=== PATIENT | female | born 1990 | race American Indian/Alaskan Native ===

== ENCOUNTER 2016-09-11 17:38 | Emergency (ER) | payer MEDICAID ==
[2016-09-11 17:46] VITALS: BP 118/84
[2016-09-11 18:43] LABS: Bacteria,Urine 1+ /HPF (Negative); Bilirubin,Urine NEG (Negative); Blood,Urine NEG (Negative); Ketones,Urine NEG (Negative); Leukocyte Esterase,Urine SM (Negative); Mucus,Urine 2+ /HPF; Nitrite,Urine NEG (Negative); Protein,Urine <15 mg/dL mg/dL (Negative); Urobilinogen,Urine < 2.0 mg/dL (<2.0); WBC,Urine < 1.0 /HPF (0.0-6.0)
--- NOTE | 2016-09-14 10:02 | ED Elopement Review ---
ED Pt Elopement review - Results review Lab results: Laboratory Tests 09/11/16 18:10 Urine Color Yellow Urine Turbidity Cloudy Urine pH 6.0 Ur Specific [place] 1.025 Urine Protein <15 mg/dl Urine Glucose (UA) Neg Urine Ketones Neg Urine Blood Neg Urine Nitrite Neg Urine Bilirubin Neg Urine Urobilinogen < 2.0 Ur Leukocyte Esterase Sm Urine WBC (Auto) < 1.0 Urine RBC (Auto) 1.0 U Epithel Cells (Auto) 22.0 H Urine Bacteria (Auto) 1+ Urine Mucus 2+ Urine HCG, Qual Negative - Call Back decision Pt Call Back Decision: No action required
== END 2016-09-11 20:45 | disposition left against medical advice (07) ==
LOC: ED 17:38
DX: R10.2 Pelvic and perineal pain (principal); N89.8 Other specified noninflammatory disorders of vagina; Z53.21 Procedure and treatment not carried out due to patient leaving prior to being seen by health care provider
CPT/HCPCS: 81001; 81025

== ENCOUNTER 2016-09-18 10:14 | Emergency (ER) | payer MEDICAID ==
[2016-09-18 10:26] VITALS: BP 135/88
[2016-09-18 10:48] LABS: Bilirubin,Urine NEG (Negative); Blood,Urine MOD (Negative); Ketones,Urine NEG (Negative); Leukocyte Esterase,Urine TR (Negative); Mucus,Urine FEW /HPF; Nitrite,Urine NEG (Negative); Protein,Urine <15 mg/dL mg/dL (Negative); Urobilinogen,Urine < 2.0 mg/dL (<2.0)
--- NOTE | 2016-09-18 12:02 | Emergency Department Report ---
ED Female HPI - General Chief complaint: Urogenital-Female Stated complaint: VAG DISCHARGE/PELVIC PAIN Time Seen by Provider: 09/18/16 12:01 Source: patient Mode of arrival: Ambulatory Limitations: No Limitations - History of Present Illness Initial comments: Patient reports intermittent vaginal discharge with an odor that initially started in June, however she misplace the prescription and never followed up with the [facility]ERR[facility]. MD Complaint: vaginal discharge Onset/Timin -: month(s) Location: suprapubic, RLQ Radiation: LLQ, RLQ Severity: moderate Severity scale (0 -10): 7 Quality: cramping Consistency: intermittent Improves with: none Worsens with: intercourse Are you Now?: No Last Menstrual Period: 07/06/16 EDC: 04/12/17 Associated Symptoms: vaginal discharge, other (pelvic pain). denies: vaginal bleeding, abdominal pain, nausea/vomiting, fever/chills, headaches, loss of appetite, dysuria, hematuria, rash, seizure, shortness of breath, syncope, weakness - Related Data Sexually active: Yes (one male partner) Previous Rx's Medication Instructions Recorded Last Taken Type Ibuprofen [Motrin 600 MG tab] 600 mg PO Q8H PRN #30 tablet 09/18/16 Unknown Rx metroNIDAZOLE [Flagyl] 500 mg PO Q12HR #14 tab 09/18/16 Unknown Rx Allergies Allergy/AdvReac Type Severity Reaction Status Date / Time No Known Allergies Allergy Verified 09/18/16 10:21 ED Review of Systems ROS: Stated complaint: VAG DISCHARGE/PELVIC PAIN Other details as noted in HPI Comment: All other systems reviewed and negative Respiratory: denies: cough, orthopnea, shortness of breath, SOB with exertion, SOB at rest, stridor, wheezing Cardiovascular: denies: chest pain, palpitations, dyspnea on exertion, orthopnea , edema, syncope, paroxysmal nocturnal dyspnea Gastrointestinal: abdominal pain. denies: nausea, vomiting, diarrhea, constipation, hematemesis, melena, hematochezia Genitourinary: discharge. denies: urgency, dysuria, frequency, hematuria, abnormal menses, dyspareunia Musculoskeletal: denies: back pain, joint swelling, arthralgia Neurological: denies: headache, weakness, numbness, paresthesias ED Past Medical Hx - Past Medical History Hx Asthma: Yes - Surgical History Additional Surgical History: - Social History Smoking Status: Never Smoker Substance Use Type: Alcohol - Medications Home Medications: Home Medications Medication Instructions Recorded Confirmed Last Taken Type Ibuprofen [Motrin 600 MG tab] 600 mg PO Q8H PRN #30 tablet 09/18/16 Unknown Rx metroNIDAZOLE [Flagyl] 500 mg PO Q12HR #14 tab 09/18/16 Unknown Rx ED Physical Exam - General Limitations: No Limitations General appearance: alert, in no apparent distress - Head Head exam: Present: atraumatic - Eye Eye exam: Present: normal appearance - ENT ENT exam: Present: normal exam, normal orophraynx, mucous membranes moist. Absent: mucous membranes dry - Respiratory Respiratory exam: Present: normal lung sounds bilaterally. Absent: respiratory distress, wheezes, rales, rhonchi, stridor, chest wall tenderness, accessory muscle use, decreased breath sounds, prolonged expiratory - Cardiovascular Cardiovascular Exam: Present: regular rate, normal rhythm, normal heart sounds. Absent: systolic murmur, diastolic murmur, rubs, gallop - GI/Abdominal GI/Abdominal exam: Present: soft, tenderness (RLQ and suprapubic), normal bowel sounds. Absent: distended, guarding, rebound, rigid - Expanded GI/Abdominal Exam Expanded GI/Abdominal exam: Absent: psoas sign, obturator sign, heel tap sign, Mendez's sign, Rovsing's sign, tenderness at [place]'s Point, ascites - Rectal Rectal exam: Present: deferred - External exam: Present: normal external exam. Absent: erythema, swelling, lesions, lacerations, ecchymosis, bleeding Speculum exam: Present: vaginal discharge (moderate creamy). Absent: erythema, cervical discharge, vaginal bleeding, foreign body, tissue, laceration Bi-manual exam: Present: adnexal tenderness (right). Absent: cervical motion tendernes, adnexal mass, uterine enlargement, uterine tenderness - Extremities Exam Extremities exam: Present: normal inspection, full ROM, normal capillary refill - Back Exam Back exam: Present: normal inspection, full ROM. Absent: tenderness, CVA tenderness (R), CVA tenderness (L), muscle spasm, paraspinal tenderness, vertebral tenderness, rash noted - Neurological Exam Neurological exam: Present: alert, oriented X3, CN II-XII intact, normal gait, reflexes normal. Absent: motor sensory deficit - Psychiatric Psychiatric exam: Present: normal affect, normal mood - Skin Skin exam: Present: warm, dry, intact, normal color. Absent: rash ED Course Vital Signs 09/18/16 10:21 Temperature 98.6 F Pulse Rate 69 Respiratory 17 Rate Blood Pressure 135/88 O2 Sat by Pulse 98 Oximetry ED Medical Decision Making - Lab Data Lab Results 09/18/16 Range/Units 10:35 Urine Color Yellow (Yellow) Urine Turbidity Clear (Clear) Urine pH 7.0 (5.0-7.0) Ur Specific [place] 1.019 (1.003-1.030) Urine Protein <15 mg/dl (Negative) mg/dL Urine Glucose (UA) Neg (Negative) mg/dL Urine Ketones Neg (Negative) mg/dL Urine Blood Mod (Negative) Urine Nitrite Neg (Negative) Urine Bilirubin Neg (Negative) Urine Urobilinogen < 2.0 (<2.0) mg/dL Ur Leukocyte Esterase Tr (Negative) Urine WBC (Auto) 1.0 (0.0-6.0) /HPF Urine RBC (Auto) 1.0 (0.0-6.0) /HPF U Epithel Cells (Auto) 5.0 (0-13.0) /HPF Urine Mucus Few /HPF Urine HCG, Qual Negative (Negative) Microbiology 09/18/16 10:36 Vaginal Wet Prep - Final > or = 20% Clue Cells Seen No yeast Seen No Trichomoniasis Seen Vital Signs 09/18/16 10:21 Temperature 98.6 F Pulse Rate 69 Respiratory 17 Rate Blood Pressure 135/88 O2 Sat by Pulse 98 Oximetry - Radiology Data Radiology results: image reviewed HISTORY: Pelvic pain . TECHNIQUE: Transabdominal and transvaginal ultrasound with color and spectral doppler interrogation. The uterus is anteverted and measures 9 x 4 x 6 cm. No uterine mass. The endometrial stripe measures 12 mm. There are multiple small nabothian cysts in the cervix. The right ovary measures 4.4 x 3.7 x 5.3 cm. A 3.7 x 2.0 cm slightly complex cyst is noted in the right ovary. This cyst contains multiple fine internal septa. No calcification or fat density. The left ovary is unremarkable measuring 3.1 x 1.5 x 3.2 cm. No pelvic fluid collection. IMPRESSION: Slightly complex right ovarian cyst as described. This may represent a resolving hemorrhagic cyst. Multiple nabothian cysts in the cervix. - Medical Decision Making During the course of ED, laboratory and radiology studies were ordered. The imaging study revealed slightly complex right ovarian cyst as described. This may represent a resolving hemorrhagic cyst. Multiple nabothian cysts in the cervix. Patient was sent home with prescriptions for Ibuprofen and Flagyl, instructed to follow up with the selective referral given at discharge, she verbalized understanding - Differential Diagnosis STIs', UTI, Ovarian Cyst Critical care attestation.: If time is entered above; I have spent that time in minutes in the direct care of this critically ill patient, excluding procedure time. ED Disposition Clinical Impression: Bacterial vaginosis, Ovarian cyst Disposition: TO HOME OR SELFCARE Is pt being admited?: No Does the pt Need Aspirin: No Condition: Stable Instructions: Bacterial Vaginosis (ED), Ovarian Cyst (ED) Additional Instructions: Take medication as directed. Follow up with [facility] as selective. Return back to the ED for worsening symptoms or concerns Prescriptions: Ibuprofen [Motrin 600 MG tab] 600 mg PO Q8H PRN #30 tablet PRN Reason: Pain metroNIDAZOLE [Flagyl] 500 mg PO Q12HR #14 tab Referrals: PRIMARY CARE, [Primary Care Provider] - 3-5 Days SOMMER MATHEW [Asbestos Surveyor] - 3-5 Days HELADIO QUINTANA CNM [Advanced Practice Nurse] - 3-5 Days LUKE CABALLERO DO [Staff Physician] - 3-5 Days Forms: STI Treatment and Prevention, Work/School Release Form(ED) Time of Disposition: 13:46
--- NOTE | 2016-09-18 13:07 | Ultrasound Report ---
ULTRASOUND PELVIC COMPLETE ULTRASOUND TRANSVAGINAL HISTORY: Pelvic pain . TECHNIQUE: Transabdominal and transvaginal ultrasound with color and spectral doppler interrogation. The uterus is anteverted and measures 9 x 4 x 6 cm. No uterine mass. The endometrial stripe measures 12 mm. There are multiple small nabothian cysts in the cervix. The right ovary measures 4.4 x 3.7 x 5.3 cm. A 3.7 x 2.0 cm slightly complex cyst is noted in the right ovary. This cyst contains multiple fine internal septa. No calcification or fat density. The left ovary is unremarkable measuring 3.1 x 1.5 x 3.2 cm. No pelvic fluid collection. IMPRESSION: Slightly complex right ovarian cyst as described. This may represent a resolving hemorrhagic cyst. Multiple nabothian cysts in the cervix.
== END 2016-09-18 13:55 | disposition home or self-care (01) ==
LOC: ED 10:14
DX: N76.0 Acute vaginitis (principal); N83.209 Unspecified ovarian cyst, unspecified side; J45.909 Unspecified asthma, uncomplicated
CPT/HCPCS: 76830; 76856; 81001; 81025; 87210; 87591; 99284